=== PATIENT | male | born 1985 | race Caucasian/White ===

== ENCOUNTER 2022-07-01 01:01 | Inpatient (IN) | payer OTHER, SELFPAY ==
[2022-07-01] MEDS ORDERED: HYDROmorphone 0.5 MG/0.5 ML SYRINGE ONE (01:47)
[2022-07-01] MEDS ORDERED: Dextrose 5% in Water 1,000 ML IV PRN (01:57)
[2022-07-01] MEDS ORDERED: Ipratropium/Albuterol 3 ML NEB NEB PRN (01:57)
[2022-07-01] MEDS ORDERED: hydrALAZINE 20 MG/ML VIAL SLOW IVP PRN (01:57)
[2022-07-01] MEDS ORDERED: TETANUS, DIPHTHERIA TOX,ADULT (TDVAX) 0.5 ML VIAL IM ONE (01:57)
[2022-07-01] MEDS ORDERED: Morphine 2 MG/ML VIAL SLOW IVP PRN (01:57)
[2022-07-01] MEDS ORDERED: Ondansetron PF 4 MG/2 ML Vial IVP PRN (01:57)
[2022-07-01] MEDS ORDERED: Dextrose 50% Abboject 50 ML SYRINGE SLOW IVP PRN (01:57)
[2022-07-01] MEDS ORDERED: Ondansetron ODT 4 MG TAB PO PRN (01:57)
[2022-07-01] MEDS ORDERED: Sodium Chloride 0.9% 1,000 ML IV SCH (02:00)
[2022-07-01] MEDS ORDERED: Cyclobenzaprine 10 MG TAB PO PRN (02:01)
[2022-07-01 02:15] LABS: #Basophils 0.1 thou/uL (0.0-0.2); #Eosinphils 0.1 thou/uL (0.0-0.7); #Lymphocytes 2.2 thou/uL (1.20-3.40); #Monocytes 1.5 thou/uL (0.11-0.59); #Neutrophils 20.5 thou/uL (1.40-6.50); %Basophils 0.3 % (0.0-1.0); %Eosinophils 0.3 % (0.0-10.0); %Lymphocytes 8.8 % (21.0-51.0); %Monocytes 6.1 % (0.0-10.0); %Neutrophils 84.4 % (42.0-75.0); Hemoglobin 16.7 g/dL (14.0-18.0); Mean Corpuscular HGB CONC 34.6 g/dL (32.0-36.0); Mean Corpuscular Hemoglobin 31.9 pg (27.0-31.0); Mean Corpuscular Volume 92.3 fl (78.0-98.0); Mean Platelet Volume 7.4 fL (7.4-10.4); Platelet Count 233 10x3/uL (130-400); RBC Distribution Width 12.4 % (11.5-14.5); Red Blood Cell (RBC) Count 5.24 mill/uL (4.70-6.10); White Blood Cell (WBC) Count 24.4 10x3/uL (4.8-10.8)
[2022-07-01 02:31] LABS: Anion Gap 17 mmol/L (10-20); BUN (Urea Nitrogen) 8 mg/dL (8.9-20.6); Calc. Creatinine Clearance 0 mL/min (70-130); Calcium 9.3 mg/dL (7.8-10.44); Carbon Dioxide 18 mmol/L (22-29); Chloride 106 mmol/L (98-107); Estimated GFR 114; Glucose 127 mg/dL (70-105); Magnesium 1.8 mg/dL (1.6-2.6); Phosphorus 2.8 mg/dL (2.3-4.7); Sodium 137 mmol/L (136-145)
[2022-07-01] MEDS ORDERED: Ondansetron PF 4 MG/2 ML Vial ONE ×2 (03:57→13:39)
[2022-07-01] MEDS ORDERED: Morphine 4 MG/ML VIAL ONE ×3 (03:57→10:35)
[2022-07-01] MEDS: Morphine 4 MG/ML VIAL SLOW IVP PRN ×3 (04:06→10:38)
[2022-07-01] MEDS ORDERED: traMADol HCl 50 MG TAB ONE (05:40)
[2022-07-01] MEDS ORDERED: Ketorolac Tromethamine 30 MG/ML VIAL ONE ×2 (05:40→13:39)
[2022-07-01] MEDS ORDERED: Acetaminophen 500 MG TAB ONE (05:40)
[2022-07-01] MEDS: Acetaminophen 500 MG TAB PO SCH ×4 (05:52→23:18)
[2022-07-01] MEDS: traMADol HCl 50 MG TAB PO SCH ×4 (05:55→23:18)
[2022-07-01] MEDS: Ketorolac Tromethamine 30 MG/ML VIAL IVP SCH ×4 (05:55→23:23)
[2022-07-01] MEDS: Gabapentin 100 MG CAP PO SCH ×3 (06:00→20:20)
[2022-07-01] MEDS ORDERED: CEFAZOLIN 2 GM in Sodium Chloride 0.9% 100 ML IVPB SCH (07:30)
[2022-07-01] MEDS ORDERED: Famotidine 20 MG TAB ONE (09:51)
[2022-07-01] MEDS: Famotidine 20 MG TAB PO SCH ×2 (09:55→20:20)
[2022-07-01] MEDS: Senokot S 8.6-50 MG TAB PO SCH ×2 (09:56→20:20)
[2022-07-01] MEDS ORDERED: fentaNYL 50 mcg/mL 1 mL Vial ONE ×2 (13:24→16:20)
[2022-07-01] MEDS ORDERED: Dexamethasone 20 MG/5 ML VIAL ONE (13:39)
[2022-07-01] MEDS ORDERED: Metoclopramide HCl 10 MG/2 ML VIAL ONE (13:39)
[2022-07-01] MEDS ORDERED: PROPOFOL 200 MG/20 ML VIAL ONE (13:39)
[2022-07-01] MEDS ORDERED: Lidocaine 1% PF 5 ML VIAL ONE (13:39)
[2022-07-01] MEDS ORDERED: SUGAMMADEX SODIUM 200 MG/2 ML VIAL ONE (13:53)
[2022-07-01] MEDS ORDERED: Fentanyl 250 MCG/5 ML VIAL ONE (13:53)
[2022-07-01] MEDS ORDERED: Midazolam HCl 2 mg/2 ml Vial ONE (13:53)
[2022-07-01] MEDS ORDERED: Famotidine/PF 20 mg/2ml Vial ONE (13:53)
[2022-07-01] MEDS ORDERED: Sodium Chloride 0.9% 100 ML ONE (14:01)
[2022-07-01] MEDS ORDERED: CEFAZOLIN 2 GM VIAL ONE (14:01)
[2022-07-01] MEDS ORDERED: Meperidine HCl/PF 25 MG/ML VIAL ONE (15:46)
[2022-07-01] MEDS: Polyethylene Glycol 3350 17 GM Packet PO SCH (18:30)
[2022-07-01 19:32] VITALS: BMI 42.5
[2022-07-01] MEDS: CEFAZOLIN 2 GM in Sodium Chloride 0.9% 100 ML IVPB SCH (20:22)
[2022-07-02] MEDS: Acetaminophen 500 MG TAB PO SCH ×4 (05:25→23:11)
[2022-07-02] MEDS: traMADol HCl 50 MG TAB PO SCH ×4 (05:25→23:11)
[2022-07-02] MEDS: Gabapentin 100 MG CAP PO SCH ×2 (05:25→13:13)
[2022-07-02] MEDS: Ketorolac Tromethamine 30 MG/ML VIAL IVP SCH ×4 (05:27→23:10)
[2022-07-02] MEDS: CEFAZOLIN 2 GM in Sodium Chloride 0.9% 100 ML IVPB SCH ×3 (05:27→23:39)
[2022-07-02 06:36] LABS: #Monocytes 1.1 thou/uL (0.11-0.59); #Neutrophils 13.6 thou/uL (1.40-6.50); %Basophils 0.2 % (0.0-1.0); %Eosinophils 0.2 % (0.0-10.0); %Lymphocytes 11.8 % (21.0-51.0); %Monocytes 6.5 % (0.0-10.0); %Neutrophils 81.3 % (42.0-75.0); Hemoglobin 12.5 g/dL (14.0-18.0); Mean Corpuscular HGB CONC 33.1 g/dL (32.0-36.0); Mean Corpuscular Volume 93.9 fl (78.0-98.0); Mean Platelet Volume 7.5 fL (7.4-10.4); Platelet Count 241 10x3/uL (130-400); RBC Distribution Width 12.2 % (11.5-14.5); Red Blood Cell (RBC) Count 4.03 mill/uL (4.70-6.10); White Blood Cell (WBC) Count 16.7 10x3/uL (4.8-10.8)
[2022-07-02 06:58] LABS: Anion Gap 12 mmol/L (10-20); BUN (Urea Nitrogen) 13 mg/dL (8.9-20.6); Calc. Creatinine Clearance 166 mL/min (70-130); Calcium 9.3 mg/dL (7.8-10.44); Carbon Dioxide 24 mmol/L (22-29); Chloride 104 mmol/L (98-107); Estimated GFR 114; Glucose 154 mg/dL (70-105); Phosphorus 2.2 mg/dL (2.3-4.7); Potassium 4.4 mmol/L (3.5-5.1); Sodium 136 mmol/L (136-145)
[2022-07-02] MEDS: Senokot S 8.6-50 MG TAB PO SCH ×2 (09:24→21:34)
[2022-07-02] MEDS: Famotidine 20 MG TAB PO SCH ×2 (09:24→21:35)
[2022-07-02] MEDS: Polyethylene Glycol 3350 17 GM Packet PO SCH (09:28)
[2022-07-02] MEDS: Gabapentin 300 MG CAP PO SCH (21:34)
[2022-07-03] MEDS: Ketorolac Tromethamine 30 MG/ML VIAL IVP SCH ×2 (06:20→12:52)
[2022-07-03] MEDS: Acetaminophen 500 MG TAB PO SCH ×2 (06:21→12:52)
[2022-07-03] MEDS: traMADol HCl 50 MG TAB PO SCH ×2 (06:21→12:53)
[2022-07-03] MEDS: Gabapentin 300 MG CAP PO SCH (06:21)
[2022-07-03 06:45] LABS: #Basophils 0.1 thou/uL (0.0-0.2); #Eosinphils 0.3 thou/uL (0.0-0.7); #Lymphocytes 4.5 thou/uL (1.20-3.40); #Monocytes 1.1 thou/uL (0.11-0.59); #Neutrophils 6.5 thou/uL (1.40-6.50); %Basophils 0.7 % (0.0-1.0); %Eosinophils 2.2 % (0.0-10.0); %Lymphocytes 35.9 % (21.0-51.0); %Monocytes 8.9 % (0.0-10.0); %Neutrophils 52.4 % (42.0-75.0); Hemoglobin 12.6 g/dL (14.0-18.0); Mean Corpuscular HGB CONC 35.4 g/dL (32.0-36.0); Mean Corpuscular Volume 93.3 fl (78.0-98.0); Mean Platelet Volume 7.6 fL (7.4-10.4); Platelet Count 234 10x3/uL (130-400); RBC Distribution Width 12.3 % (11.5-14.5); Red Blood Cell (RBC) Count 3.81 mill/uL (4.70-6.10); White Blood Cell (WBC) Count 12.4 10x3/uL (4.8-10.8)
[2022-07-03 08:32] VITALS: TEMP 97.8
[2022-07-03] MEDS: Senokot S 8.6-50 MG TAB PO SCH (09:58)
[2022-07-03] MEDS: Famotidine 20 MG TAB PO SCH (09:58)
[2022-07-03] MEDS: Polyethylene Glycol 3350 17 GM Packet PO SCH (09:58)
[2022-07-03 12:44] VITALS: BP 156/78
== END 2022-07-03 15:30 | disposition home or self-care (01) | DRG 482 ==
LOC: ERS 01:01 → UNDOADMIN 01:35 → ERHOLD 01:35 → SDC 12:05 → SURG A 12:08
PROVIDERS: ADMIT Orthopaedic Surgery; ATTEND Orthopaedic Surgery
PROC: 0QS606Z Reposition Right Upper Femur with Intramedullary Internal Fixation Device, Open Approach (ICD-10-PCS; principal; 2022-07-01)
DX: S72.21XA Displaced subtrochanteric fracture of right femur, initial encounter for closed fracture (principal); F17.210 Nicotine dependence, cigarettes, uncomplicated; S61.411A Laceration without foreign body of right hand, initial encounter; V89.2XXA Person injured in unspecified motor-vehicle accident, traffic, initial encounter; Y99.2 Volunteer activity; I10 Essential (primary) hypertension
CPT/HCPCS: 36415; 80048; 83735; 84100; 85025; 96374; C1713; G0390; J1100; J1170; J1650; J1885; J2175; J2250; J2270; J2405; J2704; J2765; J3010; J3490; J7050; S0028

== ENCOUNTER 2022-07-11 22:11 | Emergency (ER) | payer SELFPAY ==
[~2022-07-11 22:11] MED LIST: Iopamidol 370 76% 100 ML VIAL ONE
[2022-07-11 23:22] LABS: INR-International Normal Ratio 1.6; Prothrombin Time 19.8 sec (12.0-14.7)
[2022-07-11 23:23] LABS: PTT 24.6 sec (22.9-36.1)
[2022-07-11 23:32] LABS: ALT (SGPT) 35 U/L (8-55); AST (SGOT) 23 U/L (5-34); Albumin 4.3 g/dL (3.5-5.0); Alkaline Phosphatase 86 U/L (40-110); Anion Gap 15 mmol/L (10-20); BUN (Urea Nitrogen) 12 mg/dL (8.9-20.6); Bilirubin, Total 0.5 mg/dL (0.2-1.2); Calc. Creatinine Clearance 0 mL/min (70-130); Calcium 9.5 mg/dL (7.8-10.44); Carbon Dioxide 21 mmol/L (22-29); Chloride 102 mmol/L (98-107); Estimated GFR 90; Globulin 3.3 g/dL (2.4-3.5); Glucose 105 mg/dL (70-105); Potassium 4.3 mmol/L (3.5-5.1); Protein, Total 7.6 g/dL (6.0-8.3); Sodium 134 mmol/L (136-145)
[2022-07-11 23:37] LABS: #Basophils 0.1 thou/uL (0.0-0.2); #Eosinphils 0.2 thou/uL (0.0-0.7); #Lymphocytes 3.1 thou/uL (1.20-3.40); #Monocytes 0.9 thou/uL (0.11-0.59); #Neutrophils 8.8 thou/uL (1.40-6.50); %Basophils 0.9 % (0.0-1.0); %Eosinophils 1.4 % (0.0-10.0); %Lymphocytes 23.8 % (21.0-51.0); %Monocytes 6.7 % (0.0-10.0); %Neutrophils 67.1 % (42.0-75.0); Hemoglobin 13.2 g/dL (14.0-18.0); Mean Corpuscular HGB CONC 34.5 g/dL (32.0-36.0); Mean Corpuscular Volume 92.6 fl (78.0-98.0); Mean Platelet Volume 6.1 fL (7.4-10.4); Platelet Count 440 10x3/uL (130-400); RBC Distribution Width 13.2 % (11.5-14.5); Red Blood Cell (RBC) Count 4.13 mill/uL (4.70-6.10); White Blood Cell (WBC) Count 13.1 10x3/uL (4.8-10.8)
== END 2022-07-12 00:50 | disposition home or self-care (01) ==
LOC: ERS 22:11
DX: R07.9 Chest pain, unspecified (principal); D72.829 Elevated white blood cell count, unspecified; F17.210 Nicotine dependence, cigarettes, uncomplicated
CPT/HCPCS: 36415; 71045; 71275; 80053; 83880; 84484; 85025; 85610; 85730; 93005; Q9967

== ENCOUNTER 2023-01-19 07:54 | Inpatient (IN) | payer OTHER ==
[2023-01-17 13:30] VITALS: BMI 30.7
[2023-01-19] MEDS ORDERED: Midazolam HCl 2 mg/2 ml Vial ONE (14:19)
[2023-01-19] MEDS ORDERED: fentaNYL 50 mcg/mL 1 mL Vial ONE ×2 (14:19→17:55)
[2023-01-19] MEDS ORDERED: CEFAZOLIN 2 GM VIAL ONE (15:28)
[2023-01-19] MEDS ORDERED: Sodium Chloride 0.9% 100 ML ONE (15:28)
[2023-01-19] MEDS ORDERED: PROPOFOL 40 ML ONE (15:36)
[2023-01-19] MEDS ORDERED: Fentanyl 250 MCG/5 ML VIAL ONE (15:36)
[2023-01-19] MEDS ORDERED: Ondansetron PF 4 MG/2 ML Vial ONE ×3 (15:38→19:35)
[2023-01-19] MEDS ORDERED: Rocuronium Bromide 10 MG/ML (10ML VIAL) ONE ×2 (15:38→15:55)
[2023-01-19] MEDS ORDERED: Glycopyrrolate 0.2 MG/ML 5 ML SYRINGE ONE ×2 (15:55→16:47)
[2023-01-19] MEDS ORDERED: PROPOFOL 200 MG/20 ML VIAL ONE (15:55)
[2023-01-19] MEDS ORDERED: NEOSTIGMINE 3 MG/3 ML SYR 3 MG/3 ML SYRINGE ONE ×2 (15:55→16:47)
[2023-01-19] MEDS ORDERED: HYDROcodone/Acetaminophen 5/325 mg Tablet ONE (18:38)
[2023-01-19] MEDS ORDERED: Tranexamic Acid 1,000 MG/10 ML VIAL ONE (19:16)
[2023-01-19] MEDS ORDERED: HYDROcodone/Acetaminophen 5/325 mg Tablet PO PRN (20:55)
[2023-01-19] MEDS ORDERED: Ondansetron PF 4 MG/2 ML Vial IVP PRN (20:55)
[2023-01-19] MEDS: Morphine 2 MG/ML VIAL SLOW IVP PRN (21:56)
[2023-01-19] MEDS: HYDROcodone/Acetaminophen 5/325 mg Tablet PO PRN (23:57)
[2023-01-20 05:09] VITALS: TEMP 98.1
[2023-01-20 05:44] LABS: Hematocrit 39.3 % (42.0-52.0); Mean Corpuscular HGB CONC 33.1 g/dL (32.0-36.0); Mean Corpuscular Hemoglobin 30.2 pg (27.0-31.0); Mean Corpuscular Volume 91.4 fl (78.0-98.0); Mean Platelet Volume 9.6 fL (7.4-10.4); Platelet Count 294 10x3/uL (130-400); RBC Distribution Width 13.4 % (11.5-14.5); White Blood Cell (WBC) Count 15.6 10x3/uL (4.8-10.8)
[2023-01-20 09:26] VITALS: BP 138/77
== END 2023-01-20 15:47 | disposition home or self-care (01) | DRG 482 ==
LOC: EDSTATUS 10:48 → SURG A 12:45 → INTOOBSV 12:45 → SURG A 21:21 → OBSVTOIN 01-20 14:14
PROVIDERS: ADMIT Orthopaedic Surgery; ATTEND Orthopaedic Surgery
PROC: 0QS806Z Reposition Right Femoral Shaft with Intramedullary Internal Fixation Device, Open Approach (ICD-10-PCS; principal; 2023-01-19)
PROC: 0QP804Z Removal of Internal Fixation Device from Right Femoral Shaft, Open Approach (ICD-10-PCS; 2023-01-19)
DX: S72.91XK Unspecified fracture of right femur, subsequent encounter for closed fracture with nonunion (principal)
CPT/HCPCS: 36415; 85027; 96374; C1713; G0378; J2250; J2272; J2405; J2704; J3010; J3490